=== PATIENT | female | born 1935 | race Caucasian/White ===

== ENCOUNTER 2018-11-26 12:57 | Emergency (ER) | payer MEDICARE ==
[~2018-11-26] VITALS: Ht 154.9 cm; Wt 80.3 kg
[~2018-11-26 12:57] MED LIST: CALAN SR180 MG PO; COREG12.5 MG PO; EVISTA60 MG PO; FOSAMAX70 MG PO; LABETALOL HCL100 MG PO; LEVOTHYROXINE75 MCG PO; LOSARTAN POTASS25 MG PO; LOSARTAN-HCTZ1 EAC2 PO; MERREM500 MG PO; METFORMIN HCL500 MG PO; OXYBUTYNIN CHLOR5 MG PO; VERAPAMIL ER120 MG PO
--- OUTSIDE RECORDS SUMMARY | 2018-11-26 12:59 | XMS REPORT ---
[facility] Address Unknown Phone Unavailable Care Team Providers Care Associate Professor Name Role Phone HAIDER RIVERA Unavailable Unavailable Payers Payer Name Policy Type Policy Number Effective Date Expiration Date Problems This patient has no known problems. Allergies, Adverse Reactions, Alerts Allergy Name Allergy Type Status Severity Reaction(s) Onset Date Inactive Date Treating Clinician Comments ciprofloxacin DA Active U 2016-07-26 00:00:00 phenazopyridine DA Active SV 2016-07-26 00:00:00 levofloxacin DA Active U 2016-07-26 00:00:00 Medications This patient has no known medications. Results Test Description Test Time Test Comments Text Results Atomic Results Result Comments CHEST XRAY LINE PLACEMENT [place] [address] Patient Name: BELINDA HARRIS MR #: [id number] : 1935 Age/Sex: 81/F Req #: [id number] Adm Physician: HAIDER RIVERA MD Ordered by: HAIDER RIVERA MD Report #: [id number] Location: [facility] Room/Bed: [place] [address] Procedure: [id number] DX/CHEST XRAY LINE PLACEMENT Exam Date: 07/17/17 Exam Time: 1430 REPORT STATUS: Signed PROCEDURE: A single AP view of the chest. COMPARISON: DX, CHEST SINGLE (PORTABLE), 11/19/2014, 14:31. INDICATIONS: PICC LINE PLACEMENT FINDINGS: See Impression. IMPRESSION: 1. interval placement of right-sided PICC line, which has its distal tip projecting in the proximal SVC. 2. Bilateral lower lung linear opacities, likely reflect subsegmental atelectasis. Bib Bravo M.D. Dictated by: Bib Bravo M.D. on 07/17/2017 at 15:09 Electronically approved by: Bib Bravo M.D. on 07/17/2017 at 15:09 Dictated By: BIB BRAVO MD [id number] Transcribed By: FABIOLA on 07/17/17 1504 COPY TO: HAIDER RIVERA MD
[2018-11-26 13:45] LABS: BASOPHILS % 0.2 % (0.0-1.0); EOSINOPHILS # (AUTO) 0.1 (0.0-0.4); HEMATOCRIT 39.1 % (34.2-44.1); HEMOGLOBIN 12.9 g/dL (12.0-16.0); LYMPHOCYTES # (AUTO) 2.4 (1.0-3.2); LYMPHOCYTES % 40.7 % (18.0-39.1); MEAN CORPUSCULAR HEMOGLOBIN 30.4 pg (28-32); MEAN CORPUSCULAR VOLUME 92.2 fL (81-99); MONOCYTES # (AUTO) 0.5 (0.2-0.8); MONOCYTES % 8.7 % (4.4-11.3); NEUTROPHILS # (AUTO) 2.9 (2.1-6.9); NEUTROPHILS % 48.1 % (38.7-80.0); PLATELET COUNT 200 x10e3/uL (140-360); RED BLOOD COUNT 4.24 x10e6/uL (3.6-5.1); RED CELL DISTRIBUTION WIDTH 13.9 % (11.7-14.4)
[2018-11-26 13:54] LABS: INR 1.03; PARTIAL THROMBOPLASTIN TIME 26.9 seconds (23.8-35.5)
[2018-11-26 14:01] LABS: ALANINE AMINOTRANSFERASE 9 IU/L (0-55); ALBUMIN 3.4 g/dL (3.5-5.0); ALBUMIN/GLOBULIN RATIO 0.9 (0.8-2.0); ALKALINE PHOSPHATASE 43 IU/L (40-150); ANION GAP 13.6 mmol/L (8-16); BLOOD UREA NITROGEN 14 mg/dL (7-26); BUN/CREATININE RATIO 25 (6-25); CALCIUM 8.9 mg/dL (8.4-10.2); CARBON DIOXIDE 25 mmol/L (22-29); CHLORIDE 99 mmol/L (98-107); CREATINE KINASE 46 IU/L (29-168); CREATININE, SERUM 0.56 mg/dL (0.57-1.11); EST GLOMERULAR FILTRATION RATE > 60 ML/MIN (60-); GLUCOSE 129 mg/dL (74-118); POTASSIUM 3.6 mmol/L (3.5-5.1); SODIUM 134 mmol/L (136-145)
--- NOTE | 2018-11-26 14:09 | NUR ---
PATIENT TO ROOM 11. CT HEAD COMPLETE
--- NOTE | 2018-11-26 14:33 | Diagnostic Imaging Report ---
EXAMINATION: CHEST SINGLE (PORTABLE) INDICATION: Slurred speech. ^ERMD ORDER ^[id number] ^1350 ^Y COMPARISON: 11/19/2014 FINDINGS: TUBES and LINES: None. LUNGS: Lungs are well inflated. Mild chronic appearing changes in the lungs.. There is no evidence of pneumonia or pulmonary edema. PLEURA: No pleural effusion or pneumothorax. HEART AND MEDIASTINUM: The cardiomediastinal silhouette is unremarkable. BONES AND SOFT TISSUES: No acute osseous lesion. Soft tissues are unremarkable. UPPER ABDOMEN: No free air under the diaphragm. IMPRESSION: No acute thoracic abnormality. Signed by: Dr. Harish Dunne M.D. on 11/26/2018 2:29 PM
--- NOTE | 2018-11-26 14:35 | Diagnostic Imaging Report ---
Exam: Head CT without contrast History: Disoriented, slurred speech Comparison studies: None Technique: Axial images were obtained from the skull base to the vertex. Coronal and sagittal images reconstructed from the axial data. Dose modulation, iterative reconstruction, and/or weight based adjustment of the mA/kV was utilized to reduce the radiation dose to as low as reasonably achievable. Radiation dose: Total DLP: 921 mGy*cm. Estimated effective dose: DLP x 0.015 Intravenous contrast: None Findings: Scalp: No abnormalities. Bones: No fractures, blastic or lytic lesions. Brain sulci: Mildly prominent. Ventricles: Mild compensatory dilatation of the lateral and third ventricles due to volume loss. No hydrocephalus. Extra-axial spaces: No masses, no fluid collection. Parenchyma: No mass, acute hemorrhage or acute cortical vascular insults. A few subtle hypodensities in the supratentorial white matter are nonspecific but most compatible with chronic small vessel ischemic changes. Sellar/suprasellar region: No abnormalities. Craniocervical junction: Patent foramen magnum. No Chiari one malformation. Included paranasal sinuses: The bilateral sphenoid sinuses and partially imaged left maxillary sinus are opacified and there are inspissated hyperdense secretions in the sphenoid sinuses. There may be changes of prior endoscopic sinus surgery at the left ostiomeatal unit. Density in the partially imaged left superior nasal cavity may represent polyp and could be correlated with direct visualization. Incidental findings: Atherosclerotic calcifications in the carotid siphons and in the left intradural vertebral artery. IMPRESSION: No acute intracranial abnormalities. Chronic findings: 1. Mild generalized cerebral volume loss. 2. Mild chronic microvascular ischemic changes. 3. Inflammatory changes in the paranasal sinuses as described. Signed by: Dr. Jamar Salinas M.D. on 11/26/2018 2:31 PM
[2018-11-26 14:36] LABS: BILIRUBIN,URINE NEGATIVE (NEGATIVE); CLARITY,URINE CLOUDY (CLEAR); COLOR,URINE YELLOW (YELLOW); KETONES,URINE NEGATIVE (NEGATIVE); LEUKOCYTE ESTERASE ,URINE 2+ (NEGATIVE); NITRITE,URINE POSITIVE (NEGATIVE); PROTEIN,URINE DIPSTICK 1+ (NEGATIVE); URINE UROBILINOGEN 0.2 mg/dL (0.2 - 1)
[2018-11-26 14:45] LABS: BACTERIA,URINE MANY /HPF
[2018-11-26] MEDS ORDERED: KEFLEX500 MG PO (15:15)
[2018-11-26] MEDS ORDERED: CEFTRIAXONE SOD 1 GM/NS 50 ML 50 ML IV ONE (15:15)
== END 2018-11-26 16:08 | disposition home or self-care (01) ==
LOC: ER 12:57
DX: N30.01 Acute cystitis with hematuria (principal); I10 Essential (primary) hypertension; Z86.12 Personal history of poliomyelitis; Z88.1 Allergy status to other antibiotic agents; Z83.3 Family history of diabetes mellitus; Z82.49 Family history of ischemic heart disease and other diseases of the circulatory system; E87.1 Hypo-osmolality and hyponatremia
CPT/HCPCS: 36415; 51700; 70450; 71045; 80053; 81001; 82550; 82553; 84484; 85025; 85610; 85730; 93005; 99284; J0696

== ENCOUNTER 2021-07-01 14:55 | Emergency (ER) | payer MEDICARE ==
[~2021-07-01] VITALS: Ht 154.9 cm; Wt 80.3 kg
[~2021-07-01 14:55] MED LIST changes: +KEFLEX500 MG PO
[2021-07-01] MEDS ORDERED: CEPHALEXIN500 MG PO (17:12)
[2021-07-01] MEDS ORDERED: BACTRIM DS TAB1 EACH PO (17:12)
[2021-07-02] MEDS ORDERED: BACITRACIN ZINC 0.9GM TP SCH (09:00)
== END 2021-07-01 17:57 | disposition home or self-care (01) ==
LOC: ER 16:30
DX: L89.319 Pressure ulcer of right buttock, unspecified stage (principal); I10 Essential (primary) hypertension; E11.9 Type 2 diabetes mellitus without complications; E03.9 Hypothyroidism, unspecified; Z85.828 Personal history of other malignant neoplasm of skin; Z86.12 Personal history of poliomyelitis
CPT/HCPCS: 99283

== ENCOUNTER 2023-01-06 07:29 | Emergency (ER) | payer MEDICARE ==
[~2023-01-06] VITALS: Ht 154.9 cm; Wt 80.3 kg
[~2023-01-06 07:29] MED LIST changes: +BACTRIM DS TAB1 EACH PO; +CEPHALEXIN500 MG PO
[2023-01-06 08:48] LABS: COLOR,URINE YELLOW (YELLOW)
[2023-01-06 08:49] LABS: CLARITY,URINE TURBID (CLEAR); KETONES,URINE NEGATIVE (NEGATIVE); LEUKOCYTE ESTERASE ,URINE LARGE (NEGATIVE); NITRITE,URINE POSITIVE (NEGATIVE); PROTEIN,URINE DIPSTICK NEGATIVE (NEGATIVE)
[2023-01-06 08:50] LABS: URINE UROBILINOGEN 0.2 mg/dL (0.2 - 1)
[2023-01-06 08:56] LABS: BACTERIA,URINE MANY /HPF; EPITHELIAL CELLS,URINE FEW /LPF; RBC,URINE >50 /HPF (0-5); WBC,URINE (MAN) >50 /HPF (0-5)
[2023-01-06] MEDS ORDERED: CEFTRIAXONE 1 GM VIAL IV ONE (10:00)
[2023-01-06] MEDS ORDERED: CEFTRIAXONE 1 GM VIAL IM ONE (10:15)
[2023-01-06 10:36] VITALS: O2SAT 98
[2023-01-06] MEDS ORDERED: CEPHALEXIN500 MG PO (10:47)
== END 2023-01-06 11:40 | disposition home or self-care (01) ==
LOC: ER 07:36
DX: R30.0 Dysuria (principal); N39.0 Urinary tract infection, site not specified; I10 Essential (primary) hypertension; E11.9 Type 2 diabetes mellitus without complications; E03.9 Hypothyroidism, unspecified; Z85.828 Personal history of other malignant neoplasm of skin; Z86.12 Personal history of poliomyelitis
CPT/HCPCS: 81001; 87086; 87186; 99283; J0696